=== PATIENT | female | born 1975 | race Caucasian/White ===

== ENCOUNTER 2017-10-05 22:54 | Emergency (ER) | payer BC ==
[~2017-10-05] VITALS: Ht 160 cm; Wt 60.8 kg
[~2017-10-05 22:54] MED LIST: HYDR25SU48 RC
[2017-10-05 23:19] VITALS: BP 143/85
[2017-10-05] MEDS ORDERED: ibuprofen tablet 400 MG TABLET PO ONE (23:55)
== END 2017-10-06 00:02 | disposition home or self-care (01) ==
LOC: ER 22:55
DX: T50.B95A Adverse effect of other viral vaccines, initial encounter (principal); R51 Headache; R42 Dizziness and giddiness; Z88.8 Allergy status to other drugs, medicaments and biological substances; Y92.89 Other specified places as the place of occurrence of the external cause
CPT/HCPCS: 99282